=== PATIENT | male | born 1960 | race Caucasian/White ===

== ENCOUNTER 2021-05-15 18:14 | Emergency (ER) | payer MEDICARE ==
[2021-05-15] MEDS ORDERED: VIBRAMYCIN100 MG PO (22:21)
== END 2021-05-15 22:41 | disposition home or self-care (01) ==
LOC: FER 18:14
DX: L03.113 Cellulitis of right upper limb (principal); I11.0 Hypertensive heart disease with heart failure; I50.9 Heart failure, unspecified; I25.2 Old myocardial infarction; F17.210 Nicotine dependence, cigarettes, uncomplicated; Z86.718 Personal history of other venous thrombosis and embolism; Z98.890 Other specified postprocedural states; Z95.1 Presence of aortocoronary bypass graft
CPT/HCPCS: 93971; J0696